=== PATIENT | male | born 1995 | race Two or more races ===

== ENCOUNTER 2024-06-29 19:24 | Emergency (ER) | payer OTHER ==
[~2024-06-29] VITALS: Ht 177.8 cm; Wt 68.0 kg
[2024-06-29] MEDS ORDERED: 0.9 % SODIUM CHLORIDE 1,000 ML IV STA (19:32)
[2024-06-29 19:40] LABS: HEMATOCRIT 45.9 % (39.0-48.0); HEMOGLOBIN 15.6 g/dL (13-16.00); MEAN CELL VOLUME 88.1 fL (80.0-100.00); PLATELET COUNT 304 K/uL (150-450); RED BLOOD COUNT 5.21 M/uL (4.00-6.00); RED CELL DISTRIBUTION WIDTH 13.3 % (11.5-14.5)
[2024-06-29] MEDS ORDERED: DIPHENHYDRAMINE HCL 50 MG/ML VIAL 1ML IV ONE (19:45)
[2024-06-29] MEDS ORDERED: NALOXONE HCL 0.4 MG/ML AMPUL IV ONE (19:45)
[2024-06-29 20:13] LABS: CALCIUM 9.3 mg/dL (8.5-10.1); CREATININE SERUM 1.33 mg/dL (0.70-1.30); GFR 64.02; POTASSIUM 3.07 mEq/L (3.5-5.1)
[2024-06-29 23:19] LABS: URINE APPEARANCE Clear; URINE BILIRRUBIN Negative (NEGATIVE); URINE BLOOD Negative; URINE COLOR Yellow; URINE GLUCOSE Negative (NEGATIVE); URINE KETONE Negative (NEGATIVE); URINE LEUKOCYTE Negative; URINE NITRATE Negative; URINE PROTEIN Negative (NEGATIVE)
[2024-06-29 23:24] LABS: URINE BACTERIA 13.8 uL (0.0-1933); URINE EPITHELIAL CELLS 2.3 uL (0.0-38.8); URINE WBC 1.8 uL (0.0-23.2)
[2024-06-29 23:30] LABS: URINE CAST 0.45 uL (0.0-1.40); URINE RBC 1.6 uL (0.0-20.8)
[2024-06-29 23:44] LABS: COCAINE NEGATIVE (NEGATIVE); METHADONE NEGATIVE (NEGATIVE); OPIATES NEGATIVE (NEGATIVE); THC ( Cannabinoids) NEGATIVE (NEGATIVE)
[2024-06-30] MEDS ORDERED: BENADRYL25 MG PO (01:31)
[2024-06-30 01:39] VITALS: BP 144/89; O2SAT 97
== END 2024-06-30 01:41 | disposition home or self-care (01) ==
LOC: ER 19:26
PROVIDERS: Emergency Medicine
DX: G25.89 Other specified extrapyramidal and movement disorders (principal)